=== PATIENT | female | born 1935 | race Caucasian/White ===

== ENCOUNTER → 2018-02-08 | Outpatient (CLI) | payer MEDICARE ==
[~2018-02-08] MED LIST: DULO60CA7 PO; FLUT1DIS3 INH; PREG150C PO; fioricet PO
[2018-02-08 10:24] LABS: BASOPHILS # (AUTO) 0.04 x10^3/uL (0-0.1); BASOPHILS % (AUTO) 0 % (0-1); EOSINOPHILS # (AUTO) 0.16 x10^3/uL (0-0.4); EOSINOPHILS % (AUTO) 2 % (1-7); LYMPHOCYTES # (AUTO) 2.27 x10^3/uL (1-3.4); LYMPHOCYTES % (AUTO) 23 % (22-44); MD NO; MEAN CORPUSCULAR HEMOGLOBIN 29.9 pg (27.0-34.8); MEAN CORPUSCULAR HGB CONC 33.2 g/dL (32.4-35.8); MEAN CORPUSCULAR VOLUME 90.2 fL (80-100); MEAN PLATELET VOLUME 8.4 fL (7.4-10.4); MONOCYTES # (AUTO) 0.84 x10^3/uL (0.2-0.8); MONOCYTES % (AUTO) 9 % (2-9); NEUTROPHILS # (AUTO) 6.58 x10^3/uL (1.8-6.8); NEUTROPHILS % (AUTO) 67 % (42-75); PLATELET COUNT 293 x10^3/uL (130-400); RED BLOOD COUNT 5.01 x10^6/uL (3.82-5.3); RED CELL DISTRIBUTION WIDTH 18.2 % (9.6-15.2)
[2018-02-08 10:27] LABS: INTERNATIONAL NORMALIZED RATIO 0.98 (0.93-1.1); PROTHROMBIN TIME 10.1 Seconds (9.6-11.5)
[2018-02-08 10:30] LABS: MICROSCOPIC NOT IND
[2018-02-08 10:33] LABS: ALBUMIN 3.5 g/dL (3.4-5.0); ANION GAP 4 mmol/L (5-15); CALCIUM 8.3 mg/dL (8.5-10.1); CHLORIDE 109 mmol/L (98-107)
[2018-02-08 10:38] LABS: ALANINE AMINOTRANSFERASE 32 U/L (12-78); ALKALINE PHOSPHATASE 99 U/L (45-117); BILIRUBIN,TOTAL 0.6 mg/dL (0.2-1.0); TOTAL PROTEIN 6.9 g/dL (6.4-8.2)
[2018-02-08 10:43] LABS: CULTURE INDICATED? NO
== END | disposition home or self-care (01) ==
LOC: STAR 08:45
PROVIDERS: ATTEND Orthopaedic Surgery Orthopaedic Surgery of the Spine
DX: Z01.811 Encounter for preprocedural respiratory examination (principal); M48.061 Spinal stenosis, lumbar region without neurogenic claudication; J84.10 Pulmonary fibrosis, unspecified
CPT/HCPCS: 36415; 71046; 80053; 81003; 85025; 85610; 85730; 93005

== ENCOUNTER 2018-02-13 08:02 | Inpatient (IN) | payer MEDICARE ==
[2018-02-08 09:34] VITALS: BP 124/71
[~2018-02-13] VITALS: Ht 163.8 cm; Wt 75.4 kg
[~2018-02-13 08:02] MED LIST changes: +BUPIVACAINE/PF 0.25% ONE; +EPINEPHRINE 1 MG/ML, 1ML ONE; +THROMBIN 5,000 UNIT VIAL TP ONE; +VANCOMYCIN 1,000 MG ONE
[2018-02-13] MEDS ORDERED: MIDAZOLAM 1 MG/ML, 2ML ONE (08:13)
[2018-02-13] MEDS ORDERED: FENTANYL PF 250 MCG/5ML ONE (08:13)
[2018-02-13] MEDS ORDERED: LIDOCAINE/PF 0.5% ,50ML ONE (08:39)
[2018-02-13] MEDS ORDERED: LACTATED RINGERS 1,000 ML IV SCH (08:54)
[2018-02-13] MEDS ORDERED: ACETAMINOPHEN 500 MG TABLET PO ONE (09:00)
[2018-02-13] MEDS ORDERED: GABAPENTIN 300 MG CAPSULE PO ONE (09:00)
[2018-02-13] MEDS ORDERED: OxyconTIN ER 10 MG TAB.ER PO ONE (09:00)
[2018-02-13] MEDS ORDERED: LIDOCAINE-MPF 1%, 2ML INFIL ONE (09:00)
[2018-02-13] MEDS ORDERED: VITAMIN D PO (09:01)
[2018-02-13] MEDS ORDERED: SYNTHROID PO (09:01)
[2018-02-13] MEDS ORDERED: MULT-658 PO (09:01)
[2018-02-13] MEDS ORDERED: CALCIUM PO (09:01)
[2018-02-13] MEDS ORDERED: B COMPLEX PO (09:01)
[2018-02-13] MEDS ORDERED: RALOXIFENE PO (09:01)
[2018-02-13] MEDS ORDERED: DOXYCYCLINE PO (09:01)
[2018-02-13] MEDS ORDERED: CEFAZOLIN 1,000 MG ONE (10:15)
[2018-02-13] MEDS ORDERED: PROPOFOL 10 MG/ML, 20ML ONE (10:15)
[2018-02-13] MEDS ORDERED: ROCURONIUM 10 MG/ML,10ML ONE (10:15)
[2018-02-13] MEDS ORDERED: EPHEDRINE 50 MG/ML, 1ML ONE (10:15)
[2018-02-13] MEDS ORDERED: SUCCINYLCHOLINE 20 MG/ML, 10ML ONE (10:15)
[2018-02-13] MEDS ORDERED: ONDANSETRON 2MG/ML, 2ML IVPush PRN (11:00)
[2018-02-13] MEDS ORDERED: PROMETHAZINE 25 MG/ML, 1ML IV PRN (11:00)
[2018-02-13] MEDS ORDERED: KETOROLAC 30 MG/1 ML IV PRN (11:00)
[2018-02-13] MEDS ORDERED: FENTANYL PF 100 MCG/2ML IV PRN (11:00)
[2018-02-13] MEDS ORDERED: LABETALOL 5MG/ML, 20ML IV PRN (11:00)
[2018-02-13] MEDS ORDERED: ALBUTEROL SULFATE 2.5 MG/3 ML NPPB PRN ×2 (11:00→18:00)
[2018-02-13] MEDS ORDERED: METOCLOPRAMIDE 5 MG/ML, 2ML IV PRN (11:00)
[2018-02-13] MEDS ORDERED: MEPERIDINE/PF 25MG/0.5ML IVPush PRN (11:00)
[2018-02-13] MEDS ORDERED: HYDROmorphone 1 MG/ML, 1ML IV PRN (11:00)
[2018-02-13] MEDS ORDERED: OXYcodone 5 MG/5 ML ORAL.SOL UDC PO PRN (11:00)
[2018-02-13] MEDS ORDERED: hydrALAzine 20 MG/ML, 1ML IV PRN (11:00)
[2018-02-13] MEDS ORDERED: BUPIVACAINE/PF 0.25% INFIL ONE (11:04)
[2018-02-13] MEDS ORDERED: LIDOCAINE 2%, 2ML ONE (14:13)
[2018-02-13] MEDS ORDERED: ONDANSETRON 2MG/ML, 2ML IV PRN (16:00)
[2018-02-13] MEDS ORDERED: MAGNESIUM HYDROXIDE 8%, 30ML UDC PO PRN (16:00)
[2018-02-13] MEDS ORDERED: BISACODYL 10 MG SUPP PR PRN (16:00)
[2018-02-13] MEDS ORDERED: HYDROcodone/APAP 10/325 MG TABLET PO PRN (16:00)
[2018-02-13] MEDS ORDERED: PREGABALIN 150 MG CAPSULE PO SCH (16:00)
[2018-02-13] MEDS ORDERED: PROMETHAZINE 25 MG/ML, 1ML IM PRN (16:00)
[2018-02-13] MEDS: PANTOPROZOLE 40MG TABLET PO SCH (17:58)
[2018-02-13] MEDS: CEFUROXIME 1.5 GM in SODIUM CHLORIDE 0.9% 50 ML IVPB SCH (18:08)
[2018-02-13] MEDS: D5%-0.9% NACL+KCL 20MEQ 1,000 ML IV SCH (18:08)
[2018-02-13] MEDS ORDERED: ARTIFICIAL TEARS 15 DROP/ML BOTTLE OP PRN (19:00)
[2018-02-13] MEDS: DULOXETINE 30 MG CAPSULE.DR PO SCH (21:10)
[2018-02-13] MEDS: PREGABALIN 150 MG CAPSULE PO SCH (21:10)
[2018-02-14] MEDS: CEFUROXIME 1.5 GM in SODIUM CHLORIDE 0.9% 50 ML IVPB SCH ×3 (02:03→18:10)
[2018-02-14 04:00] VITALS: BP 112/51
[2018-02-14 04:51] LABS: BASOPHILS # (AUTO) 0.03 x10^3/uL (0-0.1); BASOPHILS % (AUTO) 0 % (0-1); EOSINOPHILS # (AUTO) 0.02 x10^3/uL (0-0.4); EOSINOPHILS % (AUTO) 0 % (1-7); LYMPHOCYTES % (AUTO) 21 % (22-44); MD NO; MEAN CORPUSCULAR HEMOGLOBIN 29.5 pg (27.0-34.8); MEAN CORPUSCULAR HGB CONC 33.2 g/dL (32.4-35.8); MEAN CORPUSCULAR VOLUME 88.9 fL (80-100); MEAN PLATELET VOLUME 8.3 fL (7.4-10.4); MONOCYTES # (AUTO) 1.08 x10^3/uL (0.2-0.8); MONOCYTES % (AUTO) 10 % (2-9); NEUTROPHILS # (AUTO) 7.64 x10^3/uL (1.8-6.8); NEUTROPHILS % (AUTO) 69 % (42-75); PLATELET COUNT 238 x10^3/uL (130-400); RED BLOOD COUNT 4.31 x10^6/uL (3.82-5.3); RED CELL DISTRIBUTION WIDTH 18.4 % (9.6-15.2)
[2018-02-14] MEDS: D5%-0.9% NACL+KCL 20MEQ 1,000 ML IV SCH ×3 (04:59→22:00)
[2018-02-14 05:00] LABS: ANION GAP 6 mmol/L (5-15); CALCIUM 8.3 mg/dL (8.5-10.1); CHLORIDE 110 mmol/L (98-107); CREATININE 0.52 mg/dL (0.55-1.02)
[2018-02-14] MEDS: LEVOTHYROXINE 100 MCG TABLET PO SCH ×2 (06:00→08:41)
[2018-02-14] MEDS: PREGABALIN 150 MG CAPSULE PO SCH ×2 (08:34→21:05)
[2018-02-14] MEDS: MONTELUKAST 10 MG TABLET PO SCH (08:41)
[2018-02-14] MEDS: SENNA/DOCUSATE TABLET PO SCH (08:41)
[2018-02-14] MEDS: DULOXETINE 30 MG CAPSULE.DR PO SCH ×2 (08:41→21:05)
[2018-02-14] MEDS: DOXYCYCLINE 100MG TABLET PO SCH (08:41)
[2018-02-14] MEDS: PSYLLIUM PACKET PO SCH (08:42)
[2018-02-14] MEDS: POLYETHYLENE GLYCOL 17 GM PACKET PO SCH (08:42)
[2018-02-14] MEDS: PANTOPROZOLE 40MG TABLET PO SCH ×2 (08:49→18:13)
[2018-02-14] MEDS: RALOXIFENE 60 MG TABLET PO SCH (08:50)
[2018-02-14] MEDS: FLUTICASONE/VILANTEROL 100-25MCG/INH INH SCH (21:06)
[2018-02-15] MEDS: CEFUROXIME 1.5 GM in SODIUM CHLORIDE 0.9% 50 ML IVPB SCH ×3 (02:26→18:02)
[2018-02-15 04:22] VITALS: BP 110/52
[2018-02-15 04:58] LABS: ANION GAP 4 mmol/L (5-15); CALCIUM 8.4 mg/dL (8.5-10.1); CHLORIDE 107 mmol/L (98-107); CREATININE 0.41 mg/dL (0.55-1.02)
[2018-02-15 05:02] LABS: BASOPHILS # (AUTO) 0.04 x10^3/uL (0-0.1); BASOPHILS % (AUTO) 0 % (0-1); EOSINOPHILS # (AUTO) 0.03 x10^3/uL (0-0.4); EOSINOPHILS % (AUTO) 0 % (1-7); LYMPHOCYTES # (AUTO) 1.54 x10^3/uL (1-3.4); LYMPHOCYTES % (AUTO) 13 % (22-44); MD NO; MEAN CORPUSCULAR HEMOGLOBIN 29.6 pg (27.0-34.8); MEAN CORPUSCULAR VOLUME 89.8 fL (80-100); MEAN PLATELET VOLUME 8.5 fL (7.4-10.4); MONOCYTES # (AUTO) 1.32 x10^3/uL (0.2-0.8); MONOCYTES % (AUTO) 11 % (2-9); NEUTROPHILS # (AUTO) 9.34 x10^3/uL (1.8-6.8); NEUTROPHILS % (AUTO) 76 % (42-75); PLATELET COUNT 225 x10^3/uL (130-400); RED BLOOD COUNT 4.55 x10^6/uL (3.82-5.3); RED CELL DISTRIBUTION WIDTH 18.3 % (9.6-15.2)
[2018-02-15] MEDS: LEVOTHYROXINE 100 MCG TABLET PO SCH (06:14)
[2018-02-15] MEDS: MONTELUKAST 10 MG TABLET PO SCH (08:38)
[2018-02-15] MEDS: DULOXETINE 30 MG CAPSULE.DR PO SCH ×2 (08:38→21:00)
[2018-02-15] MEDS: DOXYCYCLINE 100MG TABLET PO SCH (08:38)
[2018-02-15] MEDS: POLYETHYLENE GLYCOL 17 GM PACKET PO SCH (08:38)
[2018-02-15] MEDS: RALOXIFENE 60 MG TABLET PO SCH (08:38)
[2018-02-15] MEDS: SENNA/DOCUSATE TABLET PO SCH (08:38)
[2018-02-15] MEDS: PREGABALIN 150 MG CAPSULE PO SCH ×2 (08:38→21:00)
[2018-02-15] MEDS: FLUTICASONE/VILANTEROL 100-25MCG/INH INH SCH (08:42)
[2018-02-15] MEDS: PANTOPROZOLE 40MG TABLET PO SCH ×2 (08:42→17:15)
[2018-02-15] MEDS: PSYLLIUM PACKET PO SCH (10:00)
[2018-02-15] MEDS ORDERED: PHARMACY INSTRUCTION MC PRN (12:30)
[2018-02-15] MEDS: D5%-0.9% NACL+KCL 20MEQ 1,000 ML IV SCH (18:02)
[2018-02-15] MEDS ORDERED: MIDAZOLAM 1 MG/ML, 2ML ONE (19:52)
[2018-02-16] MEDS: CEFUROXIME 1.5 GM in SODIUM CHLORIDE 0.9% 50 ML IVPB SCH ×3 (03:06→17:38)
[2018-02-16 04:33] LABS: ANION GAP 4 mmol/L (5-15); CALCIUM 8.5 mg/dL (8.5-10.1); CHLORIDE 106 mmol/L (98-107); CREATININE 0.42 mg/dL (0.55-1.02)
[2018-02-16] MEDS: LEVOTHYROXINE 100 MCG TABLET PO SCH (06:23)
[2018-02-16] MEDS: PANTOPROZOLE 40MG TABLET PO SCH ×2 (06:24→17:37)
[2018-02-16] MEDS: FLUTICASONE/VILANTEROL 100-25MCG/INH INH SCH (09:00)
[2018-02-16] MEDS: SENNA/DOCUSATE TABLET PO SCH (09:23)
[2018-02-16] MEDS: RALOXIFENE 60 MG TABLET PO SCH (09:23)
[2018-02-16] MEDS: MONTELUKAST 10 MG TABLET PO SCH (09:23)
[2018-02-16] MEDS: POLYETHYLENE GLYCOL 17 GM PACKET PO SCH (09:23)
[2018-02-16] MEDS: PREGABALIN 150 MG CAPSULE PO SCH ×2 (09:23→21:48)
[2018-02-16] MEDS: DULOXETINE 30 MG CAPSULE.DR PO SCH ×2 (09:23→21:48)
[2018-02-16] MEDS: PSYLLIUM PACKET PO SCH (09:24)
[2018-02-16] MEDS: D5%-0.9% NACL+KCL 20MEQ 1,000 ML IV SCH ×2 (10:00→17:37)
[2018-02-16] MEDS: DOXYCYCLINE 100MG TABLET PO SCH (14:29)
[2018-02-16] MEDS: HYDROcodone/APAP 5/325 TABLET PO PRN (14:29)
[2018-02-17] MEDS: CEFUROXIME 1.5 GM in SODIUM CHLORIDE 0.9% 50 ML IVPB SCH ×3 (03:17→17:45)
[2018-02-17] MEDS: PANTOPROZOLE 40MG TABLET PO SCH ×2 (06:46→16:28)
[2018-02-17] MEDS: LEVOTHYROXINE 100 MCG TABLET PO SCH (06:46)
[2018-02-17] MEDS: FLUTICASONE/VILANTEROL 100-25MCG/INH INH SCH (09:15)
[2018-02-17] MEDS: DULOXETINE 30 MG CAPSULE.DR PO SCH ×2 (09:18→20:51)
[2018-02-17] MEDS: RALOXIFENE 60 MG TABLET PO SCH (09:18)
[2018-02-17] MEDS: PREGABALIN 150 MG CAPSULE PO SCH ×2 (09:19→20:51)
[2018-02-17] MEDS: DOXYCYCLINE 100MG TABLET PO SCH (09:19)
[2018-02-17] MEDS: SENNA/DOCUSATE TABLET PO SCH (09:19)
[2018-02-17] MEDS: MONTELUKAST 10 MG TABLET PO SCH (09:19)
[2018-02-17] MEDS: POLYETHYLENE GLYCOL 17 GM PACKET PO SCH (09:19)
[2018-02-17] MEDS: PSYLLIUM PACKET PO SCH (09:29)
[2018-02-17 16:29] LABS: BASOPHILS # (AUTO) 0.03 x10^3/uL (0-0.1); BASOPHILS % (AUTO) 0 % (0-1); EOSINOPHILS # (AUTO) 0.17 x10^3/uL (0-0.4); EOSINOPHILS % (AUTO) 2 % (1-7); LYMPHOCYTES # (AUTO) 1.54 x10^3/uL (1-3.4); LYMPHOCYTES % (AUTO) 18 % (22-44); MD NO; MEAN CORPUSCULAR HEMOGLOBIN 29.2 pg (27.0-34.8); MEAN CORPUSCULAR HGB CONC 32.7 g/dL (32.4-35.8); MEAN CORPUSCULAR VOLUME 89.3 fL (80-100); MONOCYTES # (AUTO) 0.83 x10^3/uL (0.2-0.8); MONOCYTES % (AUTO) 10 % (2-9); NEUTROPHILS # (AUTO) 5.82 x10^3/uL (1.8-6.8); NEUTROPHILS % (AUTO) 70 % (42-75); PLATELET COUNT 289 x10^3/uL (130-400); RED BLOOD COUNT 5.22 x10^6/uL (3.82-5.3); RED CELL DISTRIBUTION WIDTH 17.8 % (9.6-15.2)
[2018-02-17 18:38] LABS: MICROSCOPIC NOT IND
[2018-02-17 18:44] LABS: CULTURE INDICATED? NO
[2018-02-17] MEDS: D5%-0.9% NACL+KCL 20MEQ 1,000 ML IV SCH (21:47)
[2018-02-18] MEDS: CEFUROXIME 1.5 GM in SODIUM CHLORIDE 0.9% 50 ML IVPB SCH ×3 (02:53→17:44)
[2018-02-18] MEDS: LEVOTHYROXINE 100 MCG TABLET PO SCH (06:29)
[2018-02-18] MEDS: D5%-0.9% NACL+KCL 20MEQ 1,000 ML IV SCH ×2 (07:45→17:44)
[2018-02-18] MEDS: POLYETHYLENE GLYCOL 17 GM PACKET PO SCH (09:01)
[2018-02-18] MEDS: PSYLLIUM PACKET PO SCH (09:01)
[2018-02-18] MEDS: PANTOPROZOLE 40MG TABLET PO SCH ×2 (09:02→17:44)
[2018-02-18] MEDS: RALOXIFENE 60 MG TABLET PO SCH (09:02)
[2018-02-18] MEDS: SENNA/DOCUSATE TABLET PO SCH (09:02)
[2018-02-18] MEDS: DULOXETINE 30 MG CAPSULE.DR PO SCH ×2 (09:02→20:57)
[2018-02-18] MEDS: PREGABALIN 150 MG CAPSULE PO SCH ×2 (09:02→20:58)
[2018-02-18] MEDS: DOXYCYCLINE 100MG TABLET PO SCH (09:03)
[2018-02-18] MEDS: MONTELUKAST 10 MG TABLET PO SCH (09:03)
[2018-02-18] MEDS: FLUTICASONE/VILANTEROL 100-25MCG/INH INH SCH (09:03)
[2018-02-19] MEDS: CEFUROXIME 1.5 GM in SODIUM CHLORIDE 0.9% 50 ML IVPB SCH ×3 (01:50→17:18)
[2018-02-19] MEDS: D5%-0.9% NACL+KCL 20MEQ 1,000 ML IV SCH ×3 (03:45→23:45)
[2018-02-19 05:44] LABS: BASOPHILS # (AUTO) 0.03 x10^3/uL (0-0.1); BASOPHILS % (AUTO) 0 % (0-1); EOSINOPHILS # (AUTO) 0.14 x10^3/uL (0-0.4); EOSINOPHILS % (AUTO) 2 % (1-7); LYMPHOCYTES # (AUTO) 1.82 x10^3/uL (1-3.4); LYMPHOCYTES % (AUTO) 21 % (22-44); MD NO; MEAN CORPUSCULAR HEMOGLOBIN 29.5 pg (27.0-34.8); MEAN CORPUSCULAR HGB CONC 33.3 g/dL (32.4-35.8); MEAN CORPUSCULAR VOLUME 88.8 fL (80-100); MEAN PLATELET VOLUME 8.2 fL (7.4-10.4); MONOCYTES # (AUTO) 0.96 x10^3/uL (0.2-0.8); MONOCYTES % (AUTO) 11 % (2-9); NEUTROPHILS # (AUTO) 5.91 x10^3/uL (1.8-6.8); NEUTROPHILS % (AUTO) 67 % (42-75); PLATELET COUNT 277 x10^3/uL (130-400); RED BLOOD COUNT 5.12 x10^6/uL (3.82-5.3); RED CELL DISTRIBUTION WIDTH 17.9 % (9.6-15.2)
[2018-02-19] MEDS: LEVOTHYROXINE 100 MCG TABLET PO SCH (05:44)
[2018-02-19 05:55] LABS: ANION GAP 6 mmol/L (5-15); CHLORIDE 108 mmol/L (98-107)
[2018-02-19 05:57] LABS: CREATININE 0.46 mg/dL (0.55-1.02)
[2018-02-19] MEDS: POLYETHYLENE GLYCOL 17 GM PACKET PO SCH (08:51)
[2018-02-19] MEDS: PSYLLIUM PACKET PO SCH (08:51)
[2018-02-19] MEDS: FLUTICASONE/VILANTEROL 100-25MCG/INH INH SCH (09:20)
[2018-02-19] MEDS: PREGABALIN 150 MG CAPSULE PO SCH ×2 (09:21→20:59)
[2018-02-19] MEDS: SENNA/DOCUSATE TABLET PO SCH (09:21)
[2018-02-19] MEDS: DOXYCYCLINE 100MG TABLET PO SCH (09:21)
[2018-02-19] MEDS: RALOXIFENE 60 MG TABLET PO SCH (09:21)
[2018-02-19] MEDS: DULOXETINE 30 MG CAPSULE.DR PO SCH ×2 (09:21→20:59)
[2018-02-19] MEDS: MONTELUKAST 10 MG TABLET PO SCH (09:21)
[2018-02-19] MEDS: PANTOPROZOLE 40MG TABLET PO SCH ×2 (09:23→17:17)
[2018-02-19] MEDS: HYDROcodone/APAP 5/325 TABLET PO PRN (20:59)
[2018-02-20] MEDS: CEFUROXIME 1.5 GM in SODIUM CHLORIDE 0.9% 50 ML IVPB SCH ×3 (01:53→17:16)
[2018-02-20] MEDS: LEVOTHYROXINE 100 MCG TABLET PO SCH (05:34)
[2018-02-20] MEDS: POLYETHYLENE GLYCOL 17 GM PACKET PO SCH (08:41)
[2018-02-20] MEDS: PSYLLIUM PACKET PO SCH (08:41)
[2018-02-20] MEDS: FLUTICASONE/VILANTEROL 100-25MCG/INH INH SCH (08:41)
[2018-02-20] MEDS: SENNA/DOCUSATE TABLET PO SCH (08:42)
[2018-02-20] MEDS: RALOXIFENE 60 MG TABLET PO SCH (08:42)
[2018-02-20] MEDS: MONTELUKAST 10 MG TABLET PO SCH (08:42)
[2018-02-20] MEDS: D5%-0.9% NACL+KCL 20MEQ 1,000 ML IV SCH ×2 (08:42→17:18)
[2018-02-20] MEDS: PANTOPROZOLE 40MG TABLET PO SCH ×2 (08:42→17:16)
[2018-02-20] MEDS: PREGABALIN 150 MG CAPSULE PO SCH ×2 (08:42→21:06)
[2018-02-20] MEDS: DULOXETINE 30 MG CAPSULE.DR PO SCH ×2 (08:42→21:06)
[2018-02-20] MEDS: DOXYCYCLINE 100MG TABLET PO SCH (08:42)
[2018-02-20] MEDS ORDERED: ENOXAPARIN 30 MG/0.3 ML SQ SCH (11:00)
[2018-02-20] MEDS: HYDROcodone/APAP 5/325 TABLET PO PRN (19:12)
[2018-02-21] MEDS: CEFUROXIME 1.5 GM in SODIUM CHLORIDE 0.9% 50 ML IVPB SCH ×3 (02:12→17:40)
[2018-02-21] MEDS: D5%-0.9% NACL+KCL 20MEQ 1,000 ML IV SCH (05:45)
[2018-02-21] MEDS: LEVOTHYROXINE 100 MCG TABLET PO SCH (06:09)
[2018-02-21] MEDS: SENNA/DOCUSATE TABLET PO SCH (08:10)
[2018-02-21] MEDS: POLYETHYLENE GLYCOL 17 GM PACKET PO SCH (08:10)
[2018-02-21] MEDS: PSYLLIUM PACKET PO SCH (08:12)
[2018-02-21] MEDS: DOXYCYCLINE 100MG TABLET PO SCH (08:35)
[2018-02-21] MEDS: DULOXETINE 30 MG CAPSULE.DR PO SCH ×2 (08:36→21:37)
[2018-02-21] MEDS: MONTELUKAST 10 MG TABLET PO SCH (08:36)
[2018-02-21] MEDS: RALOXIFENE 60 MG TABLET PO SCH (08:37)
[2018-02-21] MEDS: PREGABALIN 150 MG CAPSULE PO SCH ×2 (08:37→21:37)
[2018-02-21] MEDS: PANTOPROZOLE 40MG TABLET PO SCH ×2 (08:44→17:32)
[2018-02-21] MEDS: FLUTICASONE/VILANTEROL 100-25MCG/INH INH SCH (08:44)
[2018-02-21 15:03] LABS: FREE T4 (FREE THYROXINE) 1.33 ng/dL (0.76-1.46); THYROID STIMULATING HORMONE 0.507 mIU/L (0.358-3.740)
[2018-02-21] MEDS: VERAPAMIL 40MG TABLET PO SCH ×2 (17:32→21:37)
[2018-02-21] MEDS: HYDROcodone/APAP 5/325 TABLET PO PRN (19:16)
[2018-02-22] MEDS: CEFUROXIME 1.5 GM in SODIUM CHLORIDE 0.9% 50 ML IVPB SCH ×2 (02:23→09:39)
[2018-02-22] MEDS: LEVOTHYROXINE 100 MCG TABLET PO SCH (06:17)
[2018-02-22] MEDS: PANTOPROZOLE 40MG TABLET PO SCH ×2 (07:55→18:45)
[2018-02-22] MEDS: SENNA/DOCUSATE TABLET PO SCH (09:00)
[2018-02-22] MEDS: POLYETHYLENE GLYCOL 17 GM PACKET PO SCH (09:00)
[2018-02-22] MEDS: FLUTICASONE/VILANTEROL 100-25MCG/INH INH SCH (09:22)
[2018-02-22] MEDS: VERAPAMIL 40MG TABLET PO SCH ×3 (09:24→20:34)
[2018-02-22] MEDS: DULOXETINE 30 MG CAPSULE.DR PO SCH ×2 (09:24→20:17)
[2018-02-22] MEDS: RALOXIFENE 60 MG TABLET PO SCH (09:24)
[2018-02-22] MEDS: PREGABALIN 150 MG CAPSULE PO SCH ×2 (09:25→20:17)
[2018-02-22] MEDS: MONTELUKAST 10 MG TABLET PO SCH (09:25)
[2018-02-22] MEDS: DOXYCYCLINE 100MG TABLET PO SCH (09:25)
[2018-02-22] MEDS: ENOXAPARIN 30 MG/0.3 ML SQ SCH ×2 (09:32→20:18)
[2018-02-22] MEDS: PSYLLIUM PACKET PO SCH (09:39)
[2018-02-22 19:41] VITALS: BP 107/68
[2018-02-22] MEDS: HYDROcodone/APAP 5/325 TABLET PO PRN (21:48)
[2018-02-23] MEDS: PANTOPROZOLE 40MG TABLET PO SCH ×2 (06:16→15:55)
[2018-02-23] MEDS: LEVOTHYROXINE 100 MCG TABLET PO SCH (06:16)
[2018-02-23 07:37] VITALS: BP 123/68
[2018-02-23] MEDS: PREGABALIN 150 MG CAPSULE PO SCH ×2 (08:04→21:12)
[2018-02-23] MEDS: DOXYCYCLINE 100MG TABLET PO SCH (08:04)
[2018-02-23] MEDS: RALOXIFENE 60 MG TABLET PO SCH (08:04)
[2018-02-23] MEDS: MONTELUKAST 10 MG TABLET PO SCH (08:04)
[2018-02-23] MEDS: DULOXETINE 30 MG CAPSULE.DR PO SCH ×2 (08:05→21:05)
[2018-02-23] MEDS: POLYETHYLENE GLYCOL 17 GM PACKET PO SCH (08:05)
[2018-02-23] MEDS: ENOXAPARIN 30 MG/0.3 ML SQ SCH ×2 (08:05→21:06)
[2018-02-23] MEDS: VERAPAMIL 40MG TABLET PO SCH ×3 (08:05→21:05)
[2018-02-23] MEDS: FLUTICASONE/VILANTEROL 100-25MCG/INH INH SCH (08:05)
[2018-02-23] MEDS: SENNA/DOCUSATE TABLET PO SCH (08:05)
[2018-02-23] MEDS: PSYLLIUM PACKET PO SCH (10:00)
[2018-02-23 13:53] VITALS: BP 112/62
[2018-02-23 15:57] VITALS: BP 110/68
[2018-02-23 20:36] VITALS: BP 129/67
[2018-02-23] MEDS: HYDROcodone/APAP 5/325 TABLET PO PRN (21:04)
[2018-02-23] MEDS: HYDROCORTISONE CRM 1%, 30GM TP SCH (23:29)
[2018-02-24 03:01] VITALS: BP 131/69
[2018-02-24] MEDS: PANTOPROZOLE 40MG TABLET PO SCH ×2 (06:16→17:42)
[2018-02-24] MEDS: LEVOTHYROXINE 100 MCG TABLET PO SCH (06:16)
[2018-02-24] MEDS: ENOXAPARIN 30 MG/0.3 ML SQ SCH ×2 (08:48→22:16)
[2018-02-24] MEDS: FLUTICASONE/VILANTEROL 100-25MCG/INH INH SCH (08:48)
[2018-02-24] MEDS: MONTELUKAST 10 MG TABLET PO SCH (09:00)
[2018-02-24] MEDS: POLYETHYLENE GLYCOL 17 GM PACKET PO SCH (09:00)
[2018-02-24] MEDS: SENNA/DOCUSATE TABLET PO SCH (09:00)
[2018-02-24] MEDS: DULOXETINE 30 MG CAPSULE.DR PO SCH ×2 (09:00→22:16)
[2018-02-24] MEDS: RALOXIFENE 60 MG TABLET PO SCH (09:00)
[2018-02-24] MEDS: PREGABALIN 150 MG CAPSULE PO SCH ×2 (09:00→22:15)
[2018-02-24] MEDS: DOXYCYCLINE 100MG TABLET PO SCH (09:00)
[2018-02-24] MEDS: HYDROCORTISONE CRM 1%, 30GM TP SCH ×2 (09:00→22:15)
[2018-02-24] MEDS: PSYLLIUM PACKET PO SCH (09:58)
[2018-02-24 16:23] VITALS: BP 114/64
[2018-02-24 19:12] VITALS: BP 125/67
[2018-02-25 04:08] VITALS: BP 129/72
[2018-02-25] MEDS: LEVOTHYROXINE 100 MCG TABLET PO SCH (06:40)
[2018-02-25 07:00] VITALS: BP 124/69
[2018-02-25] MEDS: FLUTICASONE/VILANTEROL 100-25MCG/INH INH SCH (08:18)
[2018-02-25] MEDS: DULOXETINE 30 MG CAPSULE.DR PO SCH (08:18)
[2018-02-25] MEDS: RALOXIFENE 60 MG TABLET PO SCH (08:18)
[2018-02-25] MEDS: PANTOPROZOLE 40MG TABLET PO SCH (08:18)
[2018-02-25] MEDS: DOXYCYCLINE 100MG TABLET PO SCH (08:18)
[2018-02-25] MEDS: PREGABALIN 150 MG CAPSULE PO SCH (08:18)
[2018-02-25] MEDS: MONTELUKAST 10 MG TABLET PO SCH (08:19)
[2018-02-25] MEDS: SENNA/DOCUSATE TABLET PO SCH (08:19)
[2018-02-25] MEDS: POLYETHYLENE GLYCOL 17 GM PACKET PO SCH (08:19)
[2018-02-25] MEDS: ENOXAPARIN 30 MG/0.3 ML SQ SCH (08:20)
[2018-02-25] MEDS: PSYLLIUM PACKET PO SCH (08:21)
[2018-02-25] MEDS: HYDROCORTISONE CRM 1%, 30GM TP SCH (08:21)
[2018-02-25 13:56] VITALS: BP 122/71
[2018-02-25] MEDS ORDERED: OXYC-302 PO (14:03)
== END 2018-02-25 15:41 | DRG 518 ==
LOC: OUT 08:02 → CCU 14:55 → ICU 02-15 16:27 → CCU 02-16 13:57 → 4NOR 02-22 18:54
PROVIDERS: ADMIT Orthopaedic Surgery Orthopaedic Surgery of the Spine; ATTEND Orthopaedic Surgery Orthopaedic Surgery of the Spine
PROC: 00UT0JZ Supplement Spinal Meninges with Synthetic Substitute, Open Approach (ICD-10-PCS; 2018-02-13)
PROC: 00NY0ZZ Release Lumbar Spinal Cord, Open Approach (ICD-10-PCS; principal; 2018-02-13 10:00)
PROC: 0T9B70Z Drainage of Bladder with Drainage Device, Via Natural or Artificial Opening (ICD-10-PCS; 2018-02-17)
DX: M48.061 Spinal stenosis, lumbar region without neurogenic claudication (principal); R53.2 Functional quadriplegia; G96.11 Dural tear; M54.16 Radiculopathy, lumbar region; R29.6 Repeated falls; E03.9 Hypothyroidism, unspecified; G62.9 Polyneuropathy, unspecified; H04.123 Dry eye syndrome of bilateral lacrimal glands; J45.909 Unspecified asthma, uncomplicated; K21.9 Gastro-esophageal reflux disease without esophagitis; K59.09 Other constipation; Z96.1 Presence of intraocular lens; M43.16 Spondylolisthesis, lumbar region; M79.7 Fibromyalgia; Z80.1 Family history of malignant neoplasm of trachea, bronchus and lung; Z80.3 Family history of malignant neoplasm of breast; Z82.49 Family history of ischemic heart disease and other diseases of the circulatory system; Z82.5 Family history of asthma and other chronic lower respiratory diseases; Z85.3 Personal history of malignant neoplasm of breast; Z90.11 Acquired absence of right breast and nipple; Z90.710 Acquired absence of both cervix and uterus; Z98.41 Cataract extraction status, right eye; Z98.42 Cataract extraction status, left eye; Z53.8 Procedure and treatment not carried out for other reasons
CPT/HCPCS: 36415; 72100; 80048; 81003; 84100; 84439; 84443; 85025; 87040; 87081; J0171; J0690; J0697; J1650; J2001; J2250; J2270; J2550; J2704; J3010; J3370; J3490; C1763; C1781; J0330; J3480; J7120

== ENCOUNTER 2019-08-22 12:29 | Outpatient (CLI) | payer MEDICARE ==
[~2019-08-22 12:29] MED LIST changes: +B COMPLEX PO; -BUPIVACAINE/PF 0.25% ONE; +CALCIUM PO; +DOXYCYCLINE PO; -EPINEPHRINE 1 MG/ML, 1ML ONE; +MULT-658 PO; +OXYC-302 PO; +RALOXIFENE PO; +SYNTHROID PO; -THROMBIN 5,000 UNIT VIAL TP ONE; -VANCOMYCIN 1,000 MG ONE; +VITAMIN D PO
[2019-08-22] MEDS ORDERED: BUTA-177 PO (13:16)
[2019-08-22] MEDS ORDERED: CYCL1DRO EACHEYE (13:16)
[2019-08-22] MEDS ORDERED: MAGN400T9 PO (13:16)
[2019-08-22] MEDS ORDERED: OMEG1CAP39 PO (13:16)
[2019-08-22] MEDS ORDERED: PANT40TA5 PO (13:16)
[2019-08-22] MEDS ORDERED: MONT10TA6 PO (13:16)
[2019-08-22] MEDS ORDERED: ALBU18HF INH (13:16)
[2019-08-22] MEDS ORDERED: CARB15DR5 EACHEYE (13:16)
[2019-08-22] MEDS ORDERED: CALC1CAP8 PO (13:16)
[2019-08-22] MEDS ORDERED: ASPI1TAB21 PO (13:16)
[2019-08-22] MEDS ORDERED: TURM1POW PO (13:16)
[2019-08-22] MEDS ORDERED: MELO7.5T31 PO (13:16)
[2019-08-22] MEDS ORDERED: LEVO100T5 PO (13:16)
[2019-08-22] MEDS ORDERED: CHOL40002 PO (13:16)
[2019-08-22] MEDS ORDERED: DOXY100C2 PO (13:16)
[2019-08-22] MEDS ORDERED: RALO60TA12 PO (13:16)
[2019-08-22] MEDS ORDERED: ACET-1600 PO (13:16)
[2019-08-22] MEDS ORDERED: B CO1TAB14 PO (13:16)
[2019-08-22] MEDS ORDERED: MULT-717 PO (13:16)
[2019-08-22] MEDS ORDERED: POTA99TA3 PO (13:16)
[2019-08-22 13:50] LABS: BASOPHILS # (AUTO) 0.05 x10^3/uL (0-0.1); BASOPHILS % (AUTO) 1 % (0-1); EOSINOPHILS # (AUTO) 0.31 x10^3/uL (0-0.4); EOSINOPHILS % (AUTO) 3 % (1-7); LYMPHOCYTES # (AUTO) 2.57 x10^3/uL (1-3.4); LYMPHOCYTES % (AUTO) 27 % (22-44); MD NO; MEAN CORPUSCULAR HEMOGLOBIN 31.1 pg (27.0-34.8); MEAN CORPUSCULAR HGB CONC 32.6 g/dL (32.4-35.8); MEAN CORPUSCULAR VOLUME 95.3 fL (80-100); MEAN PLATELET VOLUME 8.3 fL (7.4-10.4); MONOCYTES # (AUTO) 0.73 x10^3/uL (0.2-0.8); MONOCYTES % (AUTO) 8 % (2-9); NEUTROPHILS # (AUTO) 5.75 x10^3/uL (1.8-6.8); NEUTROPHILS % (AUTO) 61 % (42-75); PLATELET COUNT 264 x10^3/uL (130-400); RED BLOOD COUNT 4.93 x10^6/uL (3.82-5.3); RED CELL DISTRIBUTION WIDTH 15.4 % (9.6-15.2)
[2019-08-22 13:56] LABS: INTERNATIONAL NORMALIZED RATIO 0.97 (0.93-1.1); PROTHROMBIN TIME 10.2 Seconds (9.6-11.5)
[2019-08-22 13:57] LABS: ANION GAP 4 mmol/L (5-15); CALCIUM 9.5 mg/dL (8.5-10.1); CHLORIDE 106 mmol/L (98-107)
[2019-08-22 13:59] LABS: CREATININE 0.72 mg/dL (0.55-1.02)
[2019-08-22 14:23] LABS: HEMOGLOBIN A1C 5.7 % (4.2-6.3)
== END 2019-08-22 23:59 | disposition home or self-care (01) ==
LOC: STAR 12:29
PROVIDERS: ATTEND Orthopaedic Surgery
DX: Z01.818 Encounter for other preprocedural examination (principal); M17.12 Unilateral primary osteoarthritis, left knee
CPT/HCPCS: 36415; 80048; 83036; 85025; 85610; 85730; 87081; 93005

== ENCOUNTER 2019-09-08 06:52 | Observation (INO) | payer MEDICARE ==
[~2019-09-08] VITALS: Ht 162.6 cm; Wt 77.9 kg
[~2019-09-08 06:52] MED LIST changes: +ACET-1600 PO; +ALBU18HF INH; +ASPI1TAB21 PO; +B CO1TAB14 PO; +BUTA-177 PO; +CALC1CAP8 PO; +CARB15DR5 EACHEYE; +CHOL40002 PO; +CYCL1DRO EACHEYE; +DOXY100C2 PO; +LEVO100T5 PO; +MAGN400T9 PO; +MELO7.5T31 PO; +MONT10TA6 PO; +MULT-717 PO; +OMEG1CAP39 PO; +PANT40TA5 PO; +POTA99TA3 PO; +RALO60TA12 PO; +TURM1POW PO
[2019-09-08] MEDS ORDERED: LACTATED RINGERS 1,000 ML IV SCH (07:09)
[2019-09-08] MEDS ORDERED: TRANEXAMIC ACID 100 MG/ML, 10ML ONE ×4 (07:14→07:16)
[2019-09-08] MEDS ORDERED: KETOROLAC 60 MG/2 ML ONE (07:14)
[2019-09-08] MEDS ORDERED: SODIUM CHLORIDE 0.9% 50 ML ONE (07:15)
[2019-09-08] MEDS ORDERED: ROPIvacaine/PF 0.2%, 20 ML ONE (07:15)
[2019-09-08] MEDS ORDERED: EPINEPHRINE 1 MG/ML, 1ML ONE (07:16)
[2019-09-08 07:26] VITALS: BP 118/69
[2019-09-08] MEDS ORDERED: ACETAMINOPHEN 500 MG TABLET PO ONE (07:30)
[2019-09-08] MEDS ORDERED: GABAPENTIN 300 MG CAPSULE PO ONE (07:30)
[2019-09-08] MEDS ORDERED: FENTANYL PF 250 MCG/5ML ONE (08:27)
[2019-09-08] MEDS ORDERED: MIDAZOLAM 1 MG/ML, 2ML ONE (08:27)
[2019-09-08] MEDS ORDERED: PSYLLIUM PACKET PO PRN (09:00)
[2019-09-08] MEDS ORDERED: ACETAMINOPHEN 650 MG/20.3 ML UDC PO PRN (09:00)
[2019-09-08] MEDS ORDERED: MAGNESIUM HYDROXIDE 8%, 30ML UDC PO PRN (09:00)
[2019-09-08] MEDS ORDERED: ALUMINUM/MAG/SIMETHICONE 30 ML UDC PO PRN (09:00)
[2019-09-08] MEDS ORDERED: SENNA/DOCUSATE TABLET PO PRN (09:00)
[2019-09-08] MEDS ORDERED: DIPHENHYDRAMINE 25 MG CAPSULE PO PRN (09:00)
[2019-09-08] MEDS ORDERED: ONDANSETRON 2MG/ML, 2ML IV PRN (09:00)
[2019-09-08] MEDS ORDERED: DIPHENHYDRAMINE 50 MG/ML, 1ML IVPush PRN (09:00)
[2019-09-08] MEDS ORDERED: BISACODYL 10 MG SUPP PR PRN (09:00)
[2019-09-08] MEDS ORDERED: PROMETHAZINE 25 MG/ML, 1ML IM PRN (09:00)
[2019-09-08] MEDS ORDERED: HYDROmorphone 1 MG/ML, 1ML INJ IVPush PRN (09:00)
[2019-09-08] MEDS ORDERED: POLYETHYLENE GLYCOL 17 GM PACKET PO PRN (09:00)
[2019-09-08] MEDS: TAMSULOSIN 0.4 MG CAP.ER.24H PO SCH (09:00)
[2019-09-08] MEDS ORDERED: ONDANSETRON 4 MG TABLET PO PRN (09:00)
[2019-09-08] MEDS ORDERED: PROMETHAZINE 25 MG/ML, 1ML IV PRN (09:30)
[2019-09-08] MEDS ORDERED: HYDROmorphone 2 MG/ML, 1ML IVPush PRN (09:30)
[2019-09-08] MEDS ORDERED: ALBUTEROL/IPRATROPIUM 2.5MG/0.5MG, 3 ML NPPB PRN (09:30)
[2019-09-08] MEDS ORDERED: OXYcodone 5 MG/5 ML ORAL.SOL UDC PO PRN (09:30)
[2019-09-08] MEDS ORDERED: METOPROLOL 1 MG/ML, 5ML IV PRN (09:30)
[2019-09-08] MEDS ORDERED: MIDAZOLAM 1 MG/ML, 2ML IV PRN (09:30)
[2019-09-08] MEDS ORDERED: MEPERIDINE/PF 25MG/ML,1ML IVPush PRN (09:30)
[2019-09-08] MEDS ORDERED: hydrALAzine 20 MG/ML, 1ML IV PRN (09:30)
[2019-09-08] MEDS ORDERED: FENTANYL PF 100 MCG/2ML IV PRN (09:30)
[2019-09-08] MEDS ORDERED: DEXAMETHASONE 4 MG/ML, 1ML ONE (09:36)
[2019-09-08] MEDS ORDERED: ONDANSETRON 2MG/ML, 2ML ONE (09:36)
[2019-09-08] MEDS ORDERED: BUPIVACAINE/PF 0.25% ONE (09:36)
[2019-09-08] MEDS ORDERED: CEFAZOLIN 1,000 MG ONE (09:36)
[2019-09-08] MEDS ORDERED: PROPOFOL 10 MG/ML, 20ML ONE (09:36)
[2019-09-08] MEDS ORDERED: LIDOCAINE-MPF 2% ,5ML ONE (09:37)
[2019-09-08] MEDS ORDERED: TRANEXAMIC ACID 1,000 MG in SODIUM CHLORIDE 0.9% 100 ML IVPB ONE (10:30)
[2019-09-08] MEDS ORDERED: KETOROLAC 30 MG/1 ML ONE (10:54)
[2019-09-08] MEDS: KETOROLAC 30 MG/1 ML IV SCH ×2 (10:55→18:01)
[2019-09-08] MEDS ORDERED: OXYcodone 5 MG/5 ML ORAL.SOL UDC ONE (11:42)
[2019-09-08] MEDS ORDERED: ARTIFICIAL TEARS 15 DROP/ML BOTTLE EACHEYE PRN (13:30)
[2019-09-08] MEDS ORDERED: BUTALB/APAP/CAFFEINE 50MG/325MG/40MG PO PRN (13:30)
[2019-09-08] MEDS ORDERED: ALBUTEROL SULFATE 2.5 MG/3 ML NPPB PRN (13:30)
[2019-09-08] MEDS: POTASSIUM CHLORIDE 20 MEQ in D5%-0.45% NACL 1,000 ML IV SCH ×2 (13:56→20:36)
[2019-09-08 14:10] VITALS: BP 112/60
[2019-09-08] MEDS: PREGABALIN 150 MG CAPSULE PO SCH ×2 (16:07→20:34)
[2019-09-08] MEDS: DOCUSATE 100 MG CAPSULE PO SCH ×2 (16:07→20:34)
[2019-09-08] MEDS: OXYcodone IR 5MG TABLET PO PRN ×2 (16:10→20:35)
[2019-09-08] MEDS: ASPIRIN 81 MG TABLET EC PO SCH (18:01)
[2019-09-08] MEDS: CEFAZOLIN PMX 1GM/50ML 50 ML IVPB SCH (18:01)
[2019-09-08 20:09] VITALS: BP 118/56
[2019-09-08] MEDS: ADVAIR INH SCH (20:33)
[2019-09-08 23:44] VITALS: BP 106/57
[2019-09-09] MEDS: CEFAZOLIN PMX 1GM/50ML 50 ML IVPB SCH (02:05)
[2019-09-09] MEDS: KETOROLAC 30 MG/1 ML IV SCH (02:05)
[2019-09-09 03:48] VITALS: BP 100/62
[2019-09-09] MEDS: OXYcodone IR 5MG TABLET PO PRN ×2 (04:20→08:45)
[2019-09-09] MEDS: ASPIRIN 81 MG TABLET EC PO SCH (05:45)
[2019-09-09] MEDS ORDERED: LEVOTHYROXINE 100 MCG TABLET PO SCH (06:00)
[2019-09-09] MEDS ORDERED: DEXAMETHASONE 4 MG/ML, 1ML IVPush SCH (06:00)
[2019-09-09] MEDS ORDERED: PANTOPROZOLE 40MG TABLET PO SCH (06:00)
[2019-09-09 06:45] VITALS: BP 112/62
[2019-09-09] MEDS: POTASSIUM CHLORIDE 20 MEQ in D5%-0.45% NACL 1,000 ML IV SCH (08:21)
[2019-09-09] MEDS: ADVAIR INH SCH (08:43)
[2019-09-09] MEDS: PREGABALIN 150 MG CAPSULE PO SCH (08:43)
[2019-09-09] MEDS: DOCUSATE 100 MG CAPSULE PO SCH (08:44)
[2019-09-09] MEDS ORDERED: BUTA-177 PO (08:44)
[2019-09-09] MEDS: TAMSULOSIN 0.4 MG CAP.ER.24H PO SCH (08:45)
[2019-09-09] MEDS ORDERED: MAGNESIUM OXIDE 400 MG TABLET PO SCH (09:00)
[2019-09-09] MEDS ORDERED: RALOXIFENE 60 MG TABLET PO SCH (09:00)
[2019-09-09] MEDS ORDERED: RESTASIS EYE EACHEYE SCH (09:00)
[2019-09-09] MEDS ORDERED: MONTELUKAST 10 MG TABLET PO SCH (09:00)
[2019-09-09] MEDS ORDERED: DULOXETINE 30 MG CAPSULE.DR PO SCH (09:00)
[2019-09-09] MEDS ORDERED: DOXYCYCLINE 100MG TABLET PO SCH (09:00)
== END 2019-09-09 11:34 | disposition home or self-care (01) ==
LOC: OUT 06:52 → ORIP 08:49 → 4NE 11:50 → DCLOUNGE 09-09 11:15
PROVIDERS: ADMIT Orthopaedic Surgery; ATTEND Orthopaedic Surgery
DX: M17.12 Unilateral primary osteoarthritis, left knee (principal); J44.9 Chronic obstructive pulmonary disease, unspecified; K21.9 Gastro-esophageal reflux disease without esophagitis; F32.9 Major depressive disorder, single episode, unspecified; M79.7 Fibromyalgia; E07.9 Disorder of thyroid, unspecified; Z99.81 Dependence on supplemental oxygen; Z88.5 Allergy status to narcotic agent; Z79.899 Other long term (current) drug therapy
CPT/HCPCS: 27447; 36415; 73560; 85014; 85018; 87806; 96365; 96366; 96375; 96376; 97116; 97150; 97161; 97165; C1713; C1776; G0378; J0171; J0690; J1100; J1885; J2405; J2704; J2795; J3010; J3480; J3490; J7120; J2250; G0475